=== PATIENT | male | born 1970 | race Caucasian/White ===

== ENCOUNTER 2018-08-06 11:34 | Inpatient (IN) | payer OTHER ==
[~2018-08-06] VITALS: Ht 170.1 cm; Wt 68.5 kg
--- NOTE | ~2018-08-06 | EKG ---
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
[2018-08-06 11:36] VITALS: BP 132/83
[2018-08-06 11:59] LABS: BASO % 0.2 % (0.0-1.0); EOS % 0.2 % (1.0-4.0); HEMATOCRIT 41.3 % (42.0-52.0); HEMOGLOBIN 14.4 g/dl (14.0-18.0); LYMPH # 0.8 10*3/uL (1.3-4.4); LYMPH % 11.5 % (27.0-41.0); MEAN CELL VOLUME 92.8 fl (80.0-94.0); MEAN CORPUSCULAR HGB 32.4 pg (27.0-31.0); MEAN CORPUSCULAR HGB CONC 34.9 g/dl (33.0-37.0); MEAN PLATELET VOLUME 9.6 fl (9.6-12.3); MONO # 0.2 10*3/uL (0.1-1.0); MONO % 3.4 % (3.0-9.0); NEUT # 5.5 10*3/uL (2.3-7.9); NEUT % 84.5 % (47.0-73.0); PLATELET COUNT AUTOMATED 279 10*3/uL (130-400); RED BLOOD COUNT 4.45 10*6/uL (4.50-5.90); WHITE BLOOD COUNT 6.5 10*3/uL (4.8-10.8)
[2018-08-06 12:17] LABS: ALKALINE PHOSPHATASE 63 U/L (45-117); BUN 11 mg/dl (7-24); CHLORIDE 105 mmol/L (98-107); POTASSIUM 3.4 mmol/L (3.5-5.1); SGOT/AST 44 IU/L (3-35); SGPT/ALT 57 U/L (12-78); SODIUM 137 mmol/L (136-145); TOTAL PROTEIN 7.4 gm/dL (6.4-8.2)
[2018-08-06 12:18] VITALS: BP 128/73
[2018-08-06 12:18] LABS: ACETAMINOPHEN (TYLENOL) < 5.0 ug/ml (10-30); ETHYL ALCOHOL < 3.0 mg/dl (<3)
[2018-08-06 12:20] VITALS: BP 173/92
[2018-08-06 12:21] LABS: TROPONIN I < 0.015 ng/ml (<0.045)
[2018-08-06 12:24] LABS: THYROID STIM HORMONE (HS) 0.155 uIU/ml (0.358-4.75)
[2018-08-06 12:32] VITALS: BP 173/92
[2018-08-06 16:00] VITALS: BP 155/81
[2018-08-06 18:49] LABS: BILIRUBIN NEGATIVE (NEGATIVE); BLOOD NEGATIVE (NEGATIVE); CLARITY CLOUDY (CLEAR); COLOR YELLOW (YELLOW); GLUCOSE NEGATIVE (NEGATIVE); KETONE 2+ (NEGATIVE); LEUKO ESTERASE NEGATIVE (NEGATIVE); NITRITE NEGATIVE (NEGATIVE)
[2018-08-06 18:53] LABS: RBC 0-2 rbc/hpf (0-2); WBC 0-2 wbc/hpf (0-5)
[2018-08-06 18:54] LABS: BACTERIA 2+; EPITHELIAL CELLS 0-2
[2018-08-06 18:57] LABS: URINE AMPHETAMINES < 1000 (1000ng/ml); URINE BARBITURATES < 200 (200ng/ml); URINE BENZODIAZEPINES < 200 (200ng/ml); URINE CANNABINOIDS (THC) > 50 (50ng/ml); URINE COCAINE < 300 (300ng/ml); URINE METHADONE < 300 (300ng/ml); URINE OPIATES > 300 (300ng/ml); URINE PHENCYCLIDINE < 25 (25ng/ml)
[2018-08-06 20:00] VITALS: BP 150/97
[2018-08-07] VITALS: BP 150/90
[2018-08-07 08:00] VITALS: BP 162/80
[2018-08-07 12:00] VITALS: BP 140/82
[2018-08-07 16:00] VITALS: BP 169/95
[2018-08-07 20:00] VITALS: BP 156/82
[2018-08-08] VITALS: BP 154/82
[2018-08-08 08:00] VITALS: BP 148/82
[2018-08-08 12:00] VITALS: BP 150/93
[2018-08-08 13:00] VITALS: BP 144/82
[2018-08-08 16:00] VITALS: BP 152/90
[2018-08-08 20:00] VITALS: BP 122/80
[2018-08-09] VITALS: BP 136/95
[2018-08-09 08:00] VITALS: BP 118/60
[2018-08-09] MEDS ORDERED: ATARAX,VISTARIL50 MG PO (10:08)
[2018-08-09] MEDS ORDERED: ROPINIROLE HYD0.5 MG PO (10:08)
[2018-08-09] MEDS ORDERED: ZOFRAN 4 MG ED2 TAB PO (10:08)
== END 2018-08-09 11:02 | disposition home or self-care (01) | DRG 897 ==
LOC: ED 11:34 → 4E 11:55 → EDHOLD 11:55 → 4E 12:07
PROVIDERS: Nurse Practitioner Family
DX: F11.10 Opioid abuse, uncomplicated (principal); R73.9 Hyperglycemia, unspecified; E87.6 Hypokalemia; F12.10 Cannabis abuse, uncomplicated; Z71.6 Tobacco abuse counseling; Z72.0 Tobacco use